=== PATIENT | female | born 1960 ===

== ENCOUNTER → 2023-04-03 13:40 | Outpatient (REF) | payer MEDICARE, OTHER, SELFPAY ==
--- NOTE | 2023-04-03 13:47 | CA_ITS ---
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 The calculated ejection fraction is 66% by biplane method. - No obvious valvular pathology seen on this study. Findings Procedure Information Contrast agent, definity, is being given per protocol without apparent complications. Left Ventricle Normal left ventricular cavity size. There is moderately increased left ventricular wall thickness. The left ventricular systolic function is normal. The calculated ejection fraction is 66% by biplane method. There is no evidence of regional wall motion abnormalities. E/E prime ratio is >15, consistent with elevated filling pressures. Evidence suggests grade I (mild) diastolic dysfunction. Focal hypertrophy of the basal septum. Right Ventricle Normal right ventricular cavity size. There is mildly decreased right ventricular systolic function. Atria Both atria are normal in size. Aortic Valve The aortic valve was not well visualized. The aortic valve structure and function is likely normal. There is no aortic valve stenosis. There is no aortic valve regurgitation. Mitral Valve The mitral valve appears normal. There is no mitral valve regurgitation. There is no mitral valve stenosis. Pulmonic Valve The pulmonic valve is likely normal. Tricuspid Valve There is trace tricuspid valve regurgitation. There is no evidence of pulmonary hypertension. Great Vessels The asc aorta is normal in size. Venous The inferior vena cava is normal in size and collapses greater than 50% with inspiration. Pericardium/Pleural There is no evidence of pericardial effusion. Prior Study Comparison No prior study available for comparison. Recommendations, Care & Conclusions No obvious valvular pathology seen on this study. Measurements 2D Linear Measurements IVSd: 1.52 0.6-0.9/0.6-1.0 cm LVIDd: 3.45 3.9-5.3/4.2-5.9 cm LVIDd Index: 1.83 2.4-3.2/2.2-3.1 cm/m2 LVIDs: 3.01 2.0-3.6 cm LVPWd: 1.32 0.7-1.1 cm LA Diam: 3.20 2.7-3.8/3.0-4.0 cm LAIDs Index: 1.69 1.5-2.3 cm/m2 LV Mass: 216.11 67-162/88-224 g LV Mass Index: 114.34 43-95/49-115 g/m2 LVOT Diam: 2.00 3.0+(-)1.3 cm 2D Systolic Function EF 4C: 63.40 >55% EF 2C: 62.50 >55% EF BiP: 65.50 >55% Mitral Valve MV Pk E: 0.77 MV PK A: 1.14 MV Decel Time: 192.00 E/A: 0.70 E'Lateral: 5.11 E'Medial: 4.79 E/E' Med: 16.10 E/E' Lat: 15.10 PHT: 56.00 MVA PHT: 3.93 Decel [place]: 4.03 Aortic Valve AoV Pk Cristi: 1.14 AoV Mn Cristi: 0.80 AoV VTI: 0.22 AoV Pk Grad: 5.00 Aov Mn Grad: 3.00 SIDNEY Cont.VTI: 2.51 LVOT LVOT Pk Cristi: 0.94 LVOT Mn Cristi: 0.65 LVOT VTI: 0.18 LVOT Pk Grad: 4.00 LVOT Mn Grad: 2.00 LVOT Diam: 2.00 LVOT Area: 3.14 Diastolic Function MV Pk E: 0.77 MV Pk A: 1.14 E/A: 0.70 E'Medial: 4.79 E/E' Med: 16.10 E' Laterial: 5.11 E/E' Lat: 15.10 Right Ventricle TAPSE (mm): 15.80 TVS' Cristi: 6.96 Tricuspid Valve TR Pk Cristi: 1.30 TR Pk Grad: 7.00 RA Press: 3.00 RVSP: 10.00 Great Vessels Aorta Sinus of Valsalva: 3.70 2.0-3.5 cm Ao Asc: 3.40 2.1-3.4 cm Pulmonary Valve PV Pk Cristi: 1.10 Peak PV Grad: 5.00 Updated in Other Vendor System with Status of Final Khanh Lockhart MD electronically signed on 04/04/2023 12:54:19 PM with status of Final
== END ==
LOC: HO.CARD 13:40
PROVIDERS: Absent Provider Physician Assistant Medical; PCP Physician Assistant; Visit Provider Physician Assistant
DX: R06.00 Dyspnea, unspecified (principal)
CPT/HCPCS: 93306; Q9957